=== PATIENT | female | born 1975 | race Two or more races ===

== ENCOUNTER 2022-12-20 08:43 | Outpatient (CLI) | payer BC | END 2022-12-20 08:49 | disposition home or self-care (01) | LOC: RAD 08:43 | PROVIDERS: ATTEND Family Medicine Geriatric Medicine | DX: M79.672 Pain in left foot (principal) ==

== ENCOUNTER 2023-03-11 14:27 | Outpatient (CLI) | payer BC | END 2023-03-11 14:31 | disposition home or self-care (01) | LOC: RAD 14:27 | PROVIDERS: ATTEND Family Medicine Geriatric Medicine | DX: M79.672 Pain in left foot (principal) ==